=== PATIENT | female | born 1985 | race Caucasian/White ===

== ENCOUNTER 2016-08-30 05:33 | Inpatient (IN) | payer OTHER ==
[2016-08-23 13:03] VITALS: BMI 28.0
--- NOTE | 2016-08-23 13:32 | PAT Medication Instructions ---
Service Date Aug 23, 2016. Current Home Medication List Cholecalciferol (Vitamin D3), 1 TAB PO QAM Ferrous Gluconate (Iron), 1 TAB PO QAM Multivit/Min/Iron/Fol Ac/Pren ( Vitamin), 1 TAB PO DAILY Medication Instructions For Your Scheduled Surgery - Take the following medications as scheduled the night before surgery: Cholecalciferol (Vitamin D3), 1 TAB PO QPM Ferrous Gluconate (Iron), 1 TAB PO QPM Multivit/Min/Iron/Fol Ac/Pren ( Vitamin), 1 TAB PO PM If you have any questions please call us at [phone] or [phone] or [phone]
[2016-08-23 13:55] LABS: BASO % 0.2 %; BASO ABS # 0.01 K/uL (0-0.2); COMPLETE YES; EOS % 0.9 %; HEMATOCRIT 32.9 % (37-47); IG% 0.4 %; LYMPH % 18.9 %; LYMPH ABS # 1.05 K/uL (1.2-3.4); MEAN CORPUSCULAR HEMOGLOBIN 31.3 pg (25-34); MEAN CORPUSCULAR HGB CONC 35.6 g/dl (32-36); MEAN PLATELET VOLUME 9.9 fL (7.4-10.4); MONO % 7.9 %; NEUT % 71.7 %; PLATELET COUNT 203 K/uL (130-400); RED BLOOD COUNT 3.74 M/uL (4.2-5.4); WHITE BLOOD COUNT 5.56 K/uL (4.8-10.8)
[2016-08-30] VITALS (14 sets, daily range): BP systolic 102–137; BP diastolic 64–83; PULSE 70–100; TEMP 36.6–37.3; O2SAT 95–98; Ht 165.1 cm; Wt 76.5 kg
[~2016-08-30] VITALS: Ht 165.1 cm; Wt 76.5 kg
[~2016-08-30 05:33] MED LIST: CHOL1000 PO; FERR28TA PO; PRENTAB26 PO
[2016-08-30] MEDS ORDERED: CEFAZOLIN IV 2,000 MG in DEXTROSE 5% 50ML 50 ML IV ONE (06:00)
[2016-08-30] MEDS ORDERED: CITRIC ACID/SODIUM CITRATE 15 ML UDC PO ONE (06:00)
[2016-08-30 06:06] LABS: HEMATOCRIT 33.6 % (37-47); MEAN CELL VOLUME 87.7 fL (80-100); MEAN CORPUSCULAR HEMOGLOBIN 31.1 pg (25-34); MEAN CORPUSCULAR HGB CONC 35.4 g/dl (32-36); MEAN PLATELET VOLUME 9.8 fL (7.4-10.4); PLATELET COUNT 198 K/uL (130-400); RED BLOOD COUNT 3.83 M/uL (4.2-5.4); WHITE BLOOD COUNT 8.09 K/uL (4.8-10.8)
[2016-08-30] MEDS: LACTATED RINGER'S 1000ML 1,000 ML IV PRN ×2 (06:46→07:22)
--- NOTE | 2016-08-30 07:21 | History & Physical Bridge Note ---
H&P Re-Evaluation Bridge Note: I have examined the patient, reviewed the History & Physical and in the interval since the performance of the History & Physical I have noted the following changes of clinical significance: No changes noted
[2016-08-30] MEDS ORDERED: MoRPHine SULFATE PF 1 MG/ML 10 ML AMP/VIAL ONE (07:23)
[2016-08-30] MEDS ORDERED: FENTANYL CITRATE INJ 50 MCG/1 ML 2 ML VIAL ONE (07:23)
[2016-08-30] MEDS ORDERED: OXYTOCIN INT UTER ONE (08:17)
[2016-08-30] MEDS ORDERED: MIDAZOLAM HCL 1 MG/ML 2ML VIAL ONE ×2 (08:22→08:25)
[2016-08-30] MEDS ORDERED: PROPOFOL IV EMULSION 10 MG/ML 20 ML VIAL IV ONE (08:26)
[2016-08-30] MEDS ORDERED: SUCCINYLCHOLINE 100MG/5ML SYR IV ONE (08:26)
[2016-08-30] MEDS ORDERED: OXYTOCIN INJ 10 UNITS/ML VIAL ONE ×4 (08:26→09:22)
[2016-08-30] MEDS ORDERED: CISATRACURIUM BESYLATE IV SOLN 2 MG/ML 10 ML VIAL ONE (08:29)
[2016-08-30] MEDS ORDERED: METHYLERGONOVINE MALEATE 0.2 MG/ML AMP ONE ×2 (08:44)
[2016-08-30] MEDS ORDERED: DEXAMETHASONE SOD INJ 4 MG/ML VIAL ONE (09:00)
[2016-08-30] MEDS ORDERED: ONDANSETRON INJ 2 MG/ML 2 ML VIAL ONE ×2 (09:00→09:51)
[2016-08-30] MEDS: MISOPROSTOL 200 MCG TAB ONE ×2 (09:28→09:57)
[2016-08-30] MEDS ORDERED: NEOSTIGMINE METHYLSULFATE 5 MG/5 ML SYR ONE (09:34)
[2016-08-30] MEDS ORDERED: GLYCOPYRROLATE INJ 0.2 MG/ML VIAL ONE (09:34)
[2016-08-30] MEDS ORDERED: LACTATED RINGER'S 1000ML 500 ML IV PRN (09:46)
[2016-08-30] MEDS ORDERED: NALOXONE HCL INJ 0.08 MG in SYRINGE 1.8 ML IV PRN (09:46)
[2016-08-30] MEDS ORDERED: NALOXONE HCL INJ 1 MG in SODIUM CHLORIDE 0.9% 1000ML 1,000 ML IV PRN ×4 (09:46)
[2016-08-30] MEDS ORDERED: SODIUM CHLORIDE 0.9% 1000ML 1,000 ML IV PRN (09:46)
[2016-08-30] MEDS ORDERED: HYDROmorphone INJ 1 MG/ML SYR ONE ×2 (09:53→10:05)
[2016-08-30] MEDS ORDERED: METOCLOPRAMIDE HCL INJ 20 MG in SODIUM CHLORIDE 0.9% 50ML 50 ML IV PRN (10:00)
[2016-08-30] MEDS ORDERED: ONDANSETRON INJ 2 MG/ML 2 ML VIAL IV PRN (10:00)
[2016-08-30] MEDS ORDERED: MEPERIDINE HCL 25 MG/ML CARP IV PRN (10:00)
[2016-08-30] MEDS ORDERED: MoRPHine SULFATE PF 1 MG/ML 10 ML AMP/VIAL EPI PRN (10:00)
[2016-08-30] MEDS ORDERED: NALOXONE HCL 0.4 MG/1 ML VIAL/CARP IV PRN (10:00)
[2016-08-30] MEDS ORDERED: LORAZEPAM 1 MG TAB PO PRN (10:00)
[2016-08-30] MEDS ORDERED: EpHEDrine SULFATE INJ 50 MG/ML AMP IV PRN (10:00)
[2016-08-30] MEDS ORDERED: NALBUPHINE HCL INJ 10 MG/ML AMP IV PRN (10:00)
[2016-08-30] MEDS ORDERED: PROMETHAZINE HCL INJ 25 MG in SODIUM CHLORIDE 0.9% 50ML 50 ML IV PRN (10:00)
[2016-08-30] MEDS ORDERED: NO NARCOTICS OR SEDATIVES SCH (10:00)
[2016-08-30] MEDS ORDERED: DiphenhydrAMINE HCL 50 MG/ML VIAL IV PRN ×3 (10:00→10:15)
[2016-08-30] MEDS ORDERED: MoRPHine SULFATE 2 MG/ML CARP IV PRN (10:00)
[2016-08-30] MEDS ORDERED: LORAZEPAM INJ 0.5 MG in SYRINGE 0.75 ML IV PRN (10:00)
[2016-08-30] MEDS ORDERED: MAGNESIUM HYDROXIDE SUSP 30 ML UDC PO PRN (10:15)
[2016-08-30] MEDS ORDERED: SENNA 8.6 MG TAB PO PRN (10:15)
[2016-08-30] MEDS ORDERED: HYDROCORTISONE ACETATE 25 MG SUPP PR PRN (10:15)
[2016-08-30] MEDS ORDERED: LANOLIN OINT EXT PRN ×2 (10:15)
[2016-08-30] MEDS ORDERED: SUPERCREAM 0.870 % 15GM JAR EXT PRN (10:15)
[2016-08-30] MEDS ORDERED: BENZOCAINE 20% AER SPR 82.5 GM CAN EXT PRN (10:15)
--- NOTE | 2016-08-30 10:54 | Anesthesiology Progress Note ---
Anesthesia Post Op Note Date & Time Aug 30, 2016 at 10:54 Vital Signs Pain Intensity: 6.0 Notes Mental Status: alert / awake / arousable, participated in evaluation Pt Amnestic to Procedure: Yes Nausea / Vomiting: adequately controlled Pain: adequately controlled Airway Patency, RR, SpO2: stable & adequate BP & HR: stable & adequate Hydration State: stable & adequate Neuraxial Anesthesia: was administered, sensory block is resolving Anesthetic Complications: no major complications apparent
[2016-08-30] MEDS: OXYTOCIN INJ 20 UNITS in LACTATED RINGER'S 1000ML 1,000 ML IV SCH ×2 (11:11→19:44)
[2016-08-30] MEDS: HYDROmorphone INJ 0.5 MG/0.5 ML SYR IV PRN ×2 (11:34→13:36)
--- NOTE | 2016-08-30 13:17 | OPERATIVE REPORT ---
DATE OF OPERATION: 08/30/2016 INDICATION FOR PROCEDURE: This is a 30-year-old G5, P4 at term with C-sections. The patient has had 4 previous sections and is having 5th section. She declines tubal ligation. PREOPERATIVE DIAGNOSES: 1. at term. 2. Previous section x4. POSTOPERATIVE DIAGNOSIS: Same. PROCEDURE: Repeat section x5. SURGEON: Renato Olmedo M.D. NUT GRINDER: Dr. Pérez. ANESTHESIA: 1. Failed spinal anesthesia. 2. General anesthesia. ESTIMATED BLOOD LOSS: 800 mL. URINE OUTPUT: 100 mL clear urine at end of procedure. IV FLUIDS: 1800 mL. FINDINGS: Live infant male in cephalic presentation, no nuchal cord. Placenta appears grossly normal. There were several adhesions between the layers from the fascia to the bladder. Extensive lysis of adhesions had to be performed in dissecting the vesicouterine peritoneum from the lower segment of the uterus. There were no adhesions posteriorly behind the bladder. The bowel appeared grossly normal. PATHOLOGY: Placenta. Cord gas. DRAINS: Graham catheter. COMPLICATIONS: None. DISPOSITION: Stable to recovery room. DESCRIPTION OF PROCEDURE: The patient was taken to the operating room where she was prepped and draped in normal sterile fashion. Time out was called. At this point, sharp instrument was used to test to see if patient had adequate analgesia. There was at this point noted that the spinal was not providing patient with adequate analgesia. Decision was therefore made to have the patient going to sleep for the operation. General anesthesia was induced. At this point, a Pfannenstiel incision was made with a scalpel and carried down to the fascia. Fascia was incised in the midline and extended laterally on both sides. Several adhesions were encountered at this point because of previous surgeries. The rectus abdominis muscle was dissected off the fascia. The peritoneum was identified and entered sharply. Once inside the abdomen, the findings were as dictated above. There were several adhesions of the bladder to the anterior abdominal wall. Once again this was also a result of previous several sections. The vesicouterine peritoneum was dissected off the lower segment of the uterus including the other adhesions that were identified at this time. The Kye retractor was placed in the abdomen. A transverse incision was made on the uterus and extended laterally on both sides. The 's head was delivered as well as the rest of the body. Cord was clamped and cut and handed over to the pediatric team. 's weight and Apgars in the pediatric record. The placenta was manually removed. At this point, further inspection of the uterus showed that there were no adhesions on the posterior uterine wall to the abdominal wall. Uterus was therefore exteriorized and cleared of all clots and debris. Uterus was closed in 2 layers using Vicryl suture. Copious amount of irrigation was used to irrigate the abdomen. The uterus was returned to the abdominal cavity. Both ovaries and tubes appeared grossly normal. [id number] was used to reapproximate the rectus abdominis muscle. The fascia was closed in a running fashion using PDS suture. SubQ space was reapproximated using 2-0 plain and skin was closed with randal. All instruments were removed from the abdomen including retractors, needles, sponges and accounted for x2. and mother are doing well in recovery. I attest to the content of the Intraoperative Record and any orders documented therein. Any exceptio ns are noted below.
[2016-08-30] MEDS: SIMETHICONE 80 MG CHEW PO SCH ×3 (13:45→21:09)
[2016-08-30] MEDS: KETOROLAC TROMETHAMINE 30 MG/ML VIAL IV. PRN (16:58)
[2016-08-30] MEDS: DOCUSATE SODIUM 100 MG CAP PO SCH (21:09)
[2016-08-31] VITALS (8 sets, daily range): BP systolic 97–106; BP diastolic 58–67; PULSE 64–80; TEMP 36.8–37.1; O2SAT 96–99
[2016-08-31] MEDS: KETOROLAC TROMETHAMINE 30 MG/ML VIAL IV. PRN (00:18)
[2016-08-31] MEDS ORDERED: PROMETHAZINE HCL INJ 25 MG in SODIUM CHLORIDE 0.9% 50ML 50 ML IV PRN (03:00)
[2016-08-31] MEDS ORDERED: ONDANSETRON INJ 2 MG/ML 2 ML VIAL IV PRN (03:00)
[2016-08-31] MEDS ORDERED: ZOLPIDEM TARTRATE 5 MG TAB PO PRN (03:00)
[2016-08-31] MEDS ORDERED: DC INTRASPINAL MORPHINE ONE (03:00)
[2016-08-31] MEDS ORDERED: OXYCODONE/ACETAMINOPHEN 5-325 TAB PO PRN (03:00)
[2016-08-31] MEDS: FERROUS SULFATE 325 MG TAB PO SCH (08:02)
[2016-08-31] MEDS: DOCUSATE SODIUM 100 MG CAP PO SCH ×2 (08:02→19:38)
[2016-08-31] MEDS: SIMETHICONE 80 MG CHEW PO SCH ×4 (08:02→19:38)
[2016-08-31] MEDS: PRENATAL VITAMIN TAB PO SCH (08:02)
[2016-08-31] MEDS: OXYCODONE/ACETAMINOPHEN 5-325 TAB PO PRN ×2 (08:29→15:51)
[2016-08-31] MEDS: IBUPROFEN 600 MG TAB PO PRN ×2 (08:29→15:52)
--- NOTE | 2016-08-31 08:43 | Surgery Progress Note ---
Surgery Progress Note Date of Service Aug 31, 2016. Subjective Post OP Day: 1 + ambulating, + diet, + feeling well, + pain controlled Objective Vital Signs: Date Time Temp Pulse Resp B/P Pulse Ox O2 Delivery O2 Flow Rate FiO2 08/31/16 03:30 36.8 71 18 97/61 96 Room Air 08/31/16 02:30 18 96 08/31/16 01:30 20 97 08/31/16 00:40 37.1 73 18 103/67 96 Room Air 08/31/16 00:40 96 Room Air 08/31/16 00:22 16 96 08/30/16 23:30 20 96 08/30/16 22:25 16 95 08/30/16 21:30 16 95 08/30/16 20:30 18 98 08/30/16 19:30 18 97 08/30/16 19:00 37.1 75 16 102/64 97 Room Air 08/30/16 18:20 18 96 08/30/16 17:20 18 96 08/30/16 16:20 16 96 08/30/16 15:20 18 98 08/30/16 15:20 98 Room Air 08/30/16 15:20 36.7 87 20 126/78 96 Room Air 08/30/16 14:20 16 98 08/30/16 14:20 37.2 100 16 121/78 98 Room Air 08/30/16 13:20 37.3 96 18 137/81 98 Room Air 08/30/16 13:20 18 98 08/30/16 12:50 36.9 75 16 125/83 96 Room Air 08/30/16 12:20 18 98 08/30/16 12:20 36.6 70 18 110/73 98 Room Air 08/30/16 12:20 98 Room Air General Appearance: no apparent distress Abdomen: non tender, non distended, soft Incision(s): clean, dry, intact Extremities: non-tender, normal inspection, no pedal edema, no calf tenderness Laboratory Results: Results Past 24 Hours Test 08/31/16 06:00 Range/Units Assessment & Plan regular diet pod#1 INCREASE ACTIVITY AND DIET
[2016-08-31 09:11] LABS: BASO % 0.1 %; BASO ABS # 0.02 K/uL (0-0.2); COMPLETE YES; EOS % 0.1 %; IG% 0.3 %; LYMPH % 6.2 %; LYMPH ABS # 0.84 K/uL (1.2-3.4); MEAN CELL VOLUME 88.6 fL (80-100); MEAN CORPUSCULAR HEMOGLOBIN 31.7 pg (25-34); MEAN CORPUSCULAR HGB CONC 35.8 g/dl (32-36); MEAN PLATELET VOLUME 9.8 fL (7.4-10.4); MONO % 6.4 %; NEUT % 86.9 %; PLATELET COUNT 211 K/uL (130-400); WHITE BLOOD COUNT 13.46 K/uL (4.8-10.8)
[2016-08-31] MEDS ORDERED: NURSING VERBAL MED ORDER ONE (16:45)
[2016-08-31] MEDS ORDERED: BISACODYL 10 MG SUPP PR ONE (17:00)
[2016-08-31] MEDS ORDERED: BISACODYL 5 MG TABEC PO ONE (22:00)
[2016-09-01] MEDS ORDERED: BISACODYL 5 MG TABEC PO ONE
[2016-09-01] MEDS: IBUPROFEN 600 MG TAB PO PRN ×3 (02:53→16:24)
[2016-09-01] MEDS: OXYCODONE/ACETAMINOPHEN 5-325 TAB PO PRN ×3 (02:53→16:24)
[2016-09-01 07:10] LABS: HEMATOCRIT 21.6 % (37-47)
[2016-09-01 07:31] VITALS: BP 92/52; PULSE 66; TEMP 36.9; O2SAT 98
[2016-09-01] MEDS: PRENATAL VITAMIN TAB PO SCH (08:33)
[2016-09-01] MEDS: DOCUSATE SODIUM 100 MG CAP PO SCH (08:33)
[2016-09-01] MEDS: FERROUS SULFATE 325 MG TAB PO SCH (08:33)
[2016-09-01] MEDS: SIMETHICONE 80 MG CHEW PO SCH ×2 (08:33→11:55)
--- NOTE | 2016-09-01 09:29 | Surgery Progress Note ---
Surgery Progress Note Date of Service Sep 01, 2016. Subjective Post OP Day: 2 + ambulating (without difficulty), + diet (toilerating Po food and meds), + feeling well, + flatus (+ve), + pain controlled, + using STOCK PATCH SAWYER, No SOB, No bowel movement, No chest pain, No complaints, No nausea, No vomiting Objective Vital Signs: Date Time Temp Pulse Resp B/P Pulse Ox O2 Delivery O2 Flow Rate FiO2 09/01/16 08:46 Room Air 09/01/16 07:31 36.9 66 16 92/52 98 08/31/16 23:45 36.8 72 18 99/58 Room Air 08/31/16 23:45 Room Air 08/31/16 15:45 98 Room Air 08/31/16 15:45 36.8 64 16 98/62 99 Room Air General Appearance: WD/WN, no apparent distress Head: normocephalic, atraumatic Neck: supple, no adenopathy, thyroid normal, no JVD, no carotid bruits, trachea midline Respiratory/Chest: chest non-tender, lungs clear, normal breath sounds, no respiratory distress, no accessory muscle use Cardiovascular: regular rate, rhythm, no edema, no gallop, no JVD, no murmur Abdomen: normal bowel sounds, non tender, non distended, soft, no organomegaly , no pulsatile mass Incision(s): clean, dry, intact, no erythema, no drainage Extremities: normal range of motion, non-tender, normal inspection, no pedal edema, no calf tenderness, normal capillary refill, pelvis stable Laboratory Results: Results Past 24 Hours Test 09/01/16 05:56 Range/Units Hemoglobin 7.7 12.0-16.0 g/dL Hematocrit 21.6 37-47 % Assessment & Plan C/sec day #2 pt doing well last hemoglobin in the 7's pt is however asymptomatic will repeat H/H at noon
[2016-09-01] MEDS ORDERED: BISACODYL 10 MG SUPP PR PRN (10:15)
[2016-09-01 12:03] LABS: HEMATOCRIT 23.1 % (37-47)
[2016-09-01] MEDS ORDERED: OXYC-57 PO (12:56)
[2016-09-01] MEDS ORDERED: MTR600X PO (12:56)
[2016-09-01] MEDS ORDERED: CLC100 PO (12:56)
[2016-09-01] MEDS ORDERED: FERR28TA PO (12:56)
--- NOTE | 2016-09-01 12:58 | Discharge Instructions ---
Discharge Instructions Date of Service Sep 01, 2016. Admission Reason for Admission: Previous Section Discharge Discharge Diagnosis / Problem: postop Discharge Goals Goal(s): Routine recovery after Activity Recommendations Activity Limitations: as noted below Lifting Limitations: gradually increase as tolerated ACTIVITY RECOMMENDATIONS: * Gradual return to full activity over the next 2-3 weeks. * No lifting - nothing heavier than baby over the next 2-3 weeks. * Do not engage in vigorous exercise, sexual activity or sports until cleared by your physician. * Do not drive or operate any motorized equipment until cleared by your physician. * You may shower/bathe daily. BREAST CARE: If you are not breast feeding: * Wear a supportive bra 24 hours a day for one to two weeks. * Avoid stimulating your breasts and nipples as much as possible during the first few weeks after delivery. * When taking a shower, have the warm water hit your back, not breasts. * When your breasts feel full, apply ice packs. Usually three to four times a day helps ease the discomfort. * Take a mild pain medication (Tylenol/Motrin) when you are uncomfortable. If breast feeding: * Use breast milk to lubricate nipples. Lansinoh cream may be used for sore nipples. You do not need to remove cream prior to breast feeding. If using a different brand of cream, check the label for directions regarding removal of cream prior to nursing. * Wear a supportive bra. * If having problems with breasts or breast feeding, call a netsuite consultant or your health care provider. OVER THE COUNTER MEDICATION: * For discomfort or pain, you may use Acetaminophen (Tylenol), Ibuprofen (Advil ), or Naproxen (Aleve) following the package directions. * For constipation you may use Colace following the package directions. SPECIAL CARE INSTRUCTIONS: When you are discharged from the hospital, it is important for you to follow the instructions listed below: * During the first week at home, you should be able to care for yourself and your baby. In addition, the usual light household activities are encouraged. * Limit your activities to the way you feel. Do not try to clean the house or move furniture. Be sensible. * If you actively engage in sports and have done so up until the time of your delivery, you may resume these activities as soon as you feel able. This may take up to one month or even longer. Use good judgment. * Continue to take your vitamins for at least six weeks after the of your baby. * Your diet need not be limited unless you were on a special diet before your delivery. Breast-feeding mothers need around 2500 calories per day and at least 64-80 ounces of fluid per day (8 to 10 glasses). * You should eat foods from the four major food groups. Crash diets or fad diets are to be avoided. Eating lean meats, fresh fruits and vegetables, low-fat dairy products, high fiber foods and a regular exercise program, will help you get back to your pre- weight without putting your health at risk. * Constipation is sometimes a problem after delivery. Take a mild laxative as needed. If breast feeding, Milk of Magnesia is acceptable to use. You may use a suppository or Fleets enema if no episiotomy. * A daily shower or tub bath is suggested. Be sure to thoroughly and gently dry the perineum. * A bloody vaginal discharge will usually continue until around four weeks post . A small amount of bleeding may continue for as long as six weeks. Vaginal discharge changes from the bright red bleeding after delivery to pink then brownish and finally yellowish-pink before becoming white and disappearing. * Bleeding may increase with activity. Your first period may come in 4-8 weeks. If you are breast feeding, your period may be delayed even longer. * Madill (sex) can begin whenever both you and your partner feel comfortable and do not have any form of genital infection. It is recommended that you wait at least six weeks for internal and external healing to occur. If you have questions, please talk to your health care practitioner. A condom should be used to prevent infection and . * Foreplay, gentle intercourse and lubrication is very important the first several times to prevent pain. A water-based lubricant such as K-Y jelly or Astroglide may be used. * Tampons and/or Douching should be avoided until after six weeks check-up. * If you have RH negative blood and your baby is RH positive, you will receive RHOGAM by injection prior to discharge. The nurse will give you a card to keep with you that has the date and place that you received RHOGAM after delivery. * During your care, you had a Rubella screen done to check for the presence of rubella antibodies in your blood. If your test was negative, you will receive a Rubella vaccine prior to discharge. This vaccine may cause a fever, soreness at the injection site and flu-like symptoms. If these symptoms persist, notify your health care practitioner. is not advised for three months after a Rubella vaccine. * Verbalizes understanding of car seat law as reviewed with patient nursing. * Car Seat hand-out given and reviewed with patient by nursing. * Shaken baby information reviewed with patient by nursing. Call you doctor if: * Heavy bleeding (saturating several pads an hour) or passing clots the size of your fist. * A fever >101 degrees F (38.3 degrees C) on two occasions four hours apart and /or chills. * Unusual pain in the pelvic or vaginal areas. Pain should improve each day . * Call the doctor for any increased redness, drainage or swelling around the incision and any pain unrelieved by prescribed pain medication. * Any signs or symptoms of phlebitis (possible blood clots forming in the veins ): leg pain, warm, red or swollen area on leg. * "Baby Blues" lasting longer than two weeks. If you have any questions or concerns, call your health care practitioner at . FOLLOW-UP VISIT: * Incision check (staple removal) in 1 week. Please call doctor's office at to set up appointment. * Please call the office at to schedule a 6 week examination. It is important you keep this appointment. * It is important for you to make arrangements for either yearly or twice yearly check-ups thereafter. . Current Hospital Diet Patient's current hospital diet: Regular OB Diet Discharge Diet Recommended Diet: Regular Diet Procedures Procedures Performed: Repeat lower uterine transverse caesarean section for the of a viable male child at 0815. Pending Studies Studies pending at discharge: no Medical Emergencies . Who to Call and When: Medical Emergencies: If at any time you feel your situation is an emergency, please call [phone] immediately. . Non-Emergent Contact Non-Emergency issues call your: Specialist . . "Provider Documentation" section prepared by Renato Olmedo. VTE Core Measure Inpt VTE Proph given/why not?: Treatment not indicated
--- NOTE | 2016-09-01 12:59 | Progress Note ---
Progress Note Date of Service Sep 01, 2016. Progress Note pt wishes to be disch home disch home with instrcutions
--- NOTE | 2016-09-01 13:54 | DISCHARGE SUMMARY ---
DATE OF DISCHARGE: 09/01/2016. CHIEF COMPLAINT: 1. at term. 2. Previous section x4, wishes to have another repeat . HISTORY OF PRESENT ILLNESS: This is a 30-year-old G5, P4, due date of 09/05/2016 with prior section x4. The patient is presently and wishes to have another section. The patient presented to [facility] on 08/30/2016 for her fifth . She declined bilateral tubal ligation with section. She underwent surgery delivered a live male, Apgars were 5, 6 and 7. Details of the delivery is in the operative record. Information in the pediatric record as well. On the day of surgery, the patient did well, met all milestones in recovery. On postop day 1, which was 08/31/2016, patient continued to improve. On day 2, the patient is requesting to go home. She has positive bowel sounds, no shortness of breath, no chills. She is ambulating, tolerating p.o. food and meds. PAST MEDICAL HISTORY: The patient has history of depression. PAST SURGICAL HISTORY: The patient had section x5. SOCIAL HISTORY: The patient denies tobacco, drug or alcohol use. FAMILY HISTORY: Noncontributory. ALLERGIES: No known drug allergies. REVIEW OF SYSTEMS: Negative except as dictated in the HPI. PHYSICAL EXAMINATION: VITAL SIGNS: Temperature is 36.9, pulse is 66, respirations 16, blood pressure is 106/67. HEART: S1, S2, regular rhythm and rate. LUNGS: Clear to auscultation bilaterally. ABDOMEN: Nontender, nondistended. Incision is clean, dry and intact. Positive bowel sounds. Uterus is firm at the umbilicus. LABORATORY DATA: Hemoglobin is 8.2, hematocrit is 23.1. CONDITION ON DISCHARGE: Stable. OPERATION: Repeat section x5. DISCHARGE DIAGNOSIS: Postop repeat section. PLAN ON DISCHARGE: The patient is discharged home with instructions regarding activity, diet, follow-up appointment and medications.
[2016-09-01 15:45] VITALS: BP 103/65; PULSE 80; TEMP 37
[2016-09-01 16:40] VITALS: BP_DIAS 65; PULSE 80; TEMP 37
== END 2016-09-01 17:20 | disposition home or self-care (01) | DRG 766 ==
LOC: C.LD 05:33 → EDSTATUS 07:30 → C.OBG 12:20
PROVIDERS: ADMIT Obstetrics & Gynecology; ATTEND Obstetrics & Gynecology
PROC: 10D00Z1 Extraction of Products of Conception, Low, Open Approach (ICD-10-PCS; principal; 2016-08-30 07:30)
PROC: 0UN90ZZ Release Uterus, Open Approach (ICD-10-PCS; principal; 2016-08-30 07:30)
DX: O34.219 Maternal care for unspecified type scar from previous cesarean delivery (principal); O99.02 Anemia complicating childbirth; D64.9 Anemia, unspecified; O99.89 Other specified diseases and conditions complicating pregnancy, childbirth and the puerperium; N73.6 Female pelvic peritoneal adhesions (postinfective); O74.6 Other complications of spinal and epidural anesthesia during labor and delivery; Z37.0 Single live birth; Z3A.39 39 weeks gestation of pregnancy; Z87.891 Personal history of nicotine dependence